=== PATIENT | female | born 1960 | race Caucasian/White ===

== ENCOUNTER 2020-02-28 13:57 | Observation (INO) | payer OTHER, SELFPAY ==
[2020-02-28] VITALS (8 sets, daily range): BP systolic 107–138; BP diastolic 66–87; PULSE 78–98; RESP 18–22; TEMP 36.9; O2SAT 95–98; BMI 40.7
--- NOTE | 2020-02-28 14:43 | US_ITS ---
WS: [id number] RIGHT UPPER QUADRANT ULTRASOUND HISTORY: RUQ abd pain COMPARISON: None available. Liver: 15.7 cm in length. Liver is normal size. There is severe attenuation and coarsened echotexture . Poor penetration of the liver due to fibrosis and fatty change. No bile duct dilatation or mass. Gallbladder: Gallbladder is very difficult to identify as a normal structure. In the expected locatio n of the gallbladder is a complex area with a large amount shadowing. There is no bile. There is a so ft tissue mass with increased vascularity in the region of the gallbladder fossa. There is a large am ount shadowing from the posterior fossa. CBD: 0.4 cm Pancreas: Not well visualized. Right kidney: 10.3 cm in length. Normal size and echogenicity. No hydronephrosis or mass. Aorta and IVC: Unremarkable abdominal aorta and IVC. No ascites. US/US gall bladder [id number] IMPRESSION: 1. Markedly abnormal RIGHT upper quadrant/gallbladder fossa. There is an abnor mal appearance to the gallbladder. There may be a soft tissue mass within the g allbladder versus emphysematous cholecystitis. There is a large amount shadowin g from the fossa. Recommend follow-up CT abdomen and pelvis with IV contrast. 2. Marked hepatic steatosis. 3. No ascites. Notified Ankit Figueroa DO at 02/28/2020 4:04 PM.
--- NOTE | 2020-02-28 14:45 | ED_ITS ---
HPI - Abdominal Pain General: Chief Complaint: ER Hold Stated Complaint: fever, abdomen pain Time Seen by Provider: 02/28/20 14:43 History of Present Illness: HPI narrative: 59-year-old female complaining of epigastric pain radiating to the right upper quadrant its been going on for the last 3 days she has nausea and vomiting and some diarrhea. She is not had a fever at all she denies any chest pain she has discomfort with taking a deep breath because of the pain in her abdomen she not been coughing anything up she denies any medic easy melena hematemesis coffee-ground emesis no hematuria no dysuria urgency or frequency MD elicited complaint: abdominal pain Onset (ago): day(s) (3) Pain Consistency: constant Location: Epigastric and RUQ Severity: severe Quality: cramping and stabbing Radiation: back Migration to: RUQ Exacerbating factors: eating Relieving factors: rest Associated Symptoms: Reports anorexia, bloating, change in bowel habits, GI cramping, diarrhea, dyspepsia, fever(s), nausea and poor appetite; Denies belching, change in stool character, chills, coffee ground emesis, consti pation, dysuria, excessive flatus, heartburn, hematochezia, hematuria, hematemesis, fecal incontinence, loose stools, melena, syncope and vomiting Review of Systems Const: Reports: fever(s); Denies: chills ENMT: Denies: throat pain, ear or mastoid pain, nasal discharge or nasal congestion Card: Denies: syncope Resp: Denies: dyspnea, productive cough or non-productive cough GI: Reports: nausea, diarrhea, bloating, GI cramping and change in bowel habits; Denies: vomiting, hematemesis, coffee ground emesis, heartburn, constipation, belching, excessive flatus, fecal incontinence, change in stool character, hematochezia or melena : Denies: dysuria or hematuria Skin/Breast: Denies: rash or pruritus PFSH ED PFSH: Medical History (Updated 03/01/20 @ 06:34 by Ankit Figueroa DO) Hypertension Surgical History (Updated 02/29/20 @ 07:45 by Chester Sanford MD) History of tubal ligation Physical Exam Const: COMMON NORMALS: no acute distress GENERAL APPEARANCE: cooperative and comfortable ORIENTATION/CONSCIOUSNESS: Yes awake, Yes oriented to person, Yes oriented to place and Yes oriented to time HENMT: COMMON NORMALS: normocephalic, atraumatic, hearing grossly normal bilaterally, external ears normal, EAC's normal, TM's normal bilaterally, Normal nasal mucous membranes and turbinates present, moist oral mucous membranes and oropharynx normal HEAD & SCALP: normocephalic and atraumatic NOSE: Normal nasal mucous membranes and turbinates present EXTERNAL EAR: Yes external ears normal EXTERNAL AUDITORY CANAL: EAC's normal TYMPANIC MEMBRANE: TM's normal bilaterally Eye: COMMON NORMALS: Equal, round and reactive pupils present, EOMs intact b ilaterally, conjunctivae normal and no scleral icterus CONJUNCTIVA: Yes conjunctivae normal PUPIL: Yes Equal, round and reactive pupils present Neck/C-Spine: COMMON NORMALS: full ROM, no lymphadenopathy, supple and no JVD Lymph: LYMPHATIC: no lymphadenopathy noted and no lymphedema noted Resp: COMMON NORMALS: normal respiratory effort, No retractions, No use of accessory muscles and clear to auscultation bilaterally AUSCULTATION: clear to auscultation bilaterally Cardio: COMMON NORMALS: no JVD, regular rate, regular rhythm and No murmurs present (Cardio) RATE: regular rate RHYTHM: regular rhythm GI: COMMON NORMALS: No hepatosplenomegaly present AUSCULTATION: Yes normoactive bowel sounds PALPATION: Yes Tenderness to palpation present (GI) (Epigastric right upper quadrant tenderness), No Guarding due to palpation present (GI) and Yes No hepatosplenomegaly present Extremity: COMMON NORMALS: normal to inspection, capillary refill normal, no clubbing, cyanosis or edema, no calf tenderness and no pedal edema Neuro: SENSORIUM/ORIENTATION: Yes oriented to person, Yes oriented to place and Yes oriented to time Skin: COMMON NORMALS: no rashes or lesions noted GENERAL SKIN EXAM: no rashes or lesions noted Course Vital Signs: Vital signs: Vital Signs Temperature 97.7 F 03/01/20 04:52 Pulse Rate 93 03/01/20 04:52 Respiratory Rate 18 03/01/20 04:52 Blood Pressure 120/74 03/01/20 04:52 Pulse Oximetry 97 03/01/20 04:52 MDM - Abdominal Pain MDM Narrative: Medical decision making narrative: Patient has biliary colic and signs of acute cholecystitis. Discussed with Dr. Sanford. Patient to be admitted and admitted orders written started on Zosyn. Dr. Sanford plans to take her to surgery in the morning for cholecystectomy Lab Data: Labs: Lab Results 02/28/20 02/28/20 02/28/20 Range/Units 15:15 15:15 16:24 WBC 12.9 H (4.0-10.0) 10^3/ uL RBC 5.43 H (4.1-5.3) 10^6/u L Hgb 16.8 H (11.5-15.3) g/dL Hct 50.8 H (37.0-47.0) % MCV 93.6 (81-99) fL MCH 30.9 (28.0-34.0) pg MCHC 33.1 (30.0-36.0) g/dL RDW 12.8 (12.1-15.1) % Plt Count 249 (130-400) 10^3/c mm MPV 9.0 (7.4-10.4) fL Neut % (Auto) 77.0 % Lymph % (Auto) 7.7 % [place] % (Auto) 8.2 % Eos % (Auto) 6.4 % Baso % (Auto) 0.2 % Neut # (Auto) 9.93 H (1.8-7.7) 10^3/u L Lymph # (Auto) 1.0 (0.8-4.8) 10^3/u L [place] # (Auto) 1.1 H (0.2-0.9) 10^3/u L Eos # (Auto) 0.8 (0.0-0.8) 10^3/u L Baso # (Auto) 0.0 (0.0-0.1) 10^3/u L Nucleated RBC % (a uto) 0 % Nucleated RBCs # 0.0 /100WBC Sodium 132 L (136-145) mmol/L Potassium 3.5 (3.5-5.1) mmol/L Chloride 93 L (98-107) mmol/L Carbon Dioxide 27 (22-29) mmol/L Anion Gap 15.5 (5-19) BUN 9 (8-23) mg/dL Creatinine 1.6 H (0.5-0.9) mg/dL GFR Calculation 32.8 L (90-130) mL/min Glucose 146 H (65-115) mg/dL Calculated Osmolal ity 275 L (285-295) mOsm/k g Calcium 9.4 (8.5-10.5) mg/dL Total Bilirubin 1.1 (0.15-1.2) mg/dL AST 21 (0-32) U/L ALT 29 (0-33) U/L Alkaline Phosphata se 101 (35-105) IU/L Total Protein 7.7 (6.6-8.7) g/dL Albumin 3.9 (3.5-5.2) g/dL Globulin 3.8 (1.3-4.6) g/dL Lipase 22 (13-60) U/L Urine Color Gi (Yellow) Urine Appearance Sl hazy (CLEAR) Urine pH 5.0 (5-7) Ur Specific [place]it y 1.015 (1.005-1.030) Urine Protein 2+ H (Negative) Urine Glucose (UA) Trace H (Normal) Urine Ketones 1+ H (Negative) Urine Blood Neg (Negative) Urine Nitrate Negative (Negative) Urine Bilirubin 1+ H (Negative) Urine Urobilinogen 4 H (Negative) mg/dL Ur Leukocyte Cady ase 2+ H (Negative) Urine RBC None (0-2) /hpf Urine WBC 15-25 H (0-5) /hpf Ur Squamous Epith Cells 40-55 H (0-5) /hpf Amorphous Sediment Not Reportable Urine Bacteria 2+ H (NONE) /hpf Discharge Plan Discharge Patient Disposition: Admitted As Inpatient Admit Provider: Chester Sanford Clinical Impression: Acute cholecystitis due to biliary calculus Condition: Stable Coding Level of Care Code ED Clinical Trials Systems Administrator for Chg Fwd Exam Comprehensive
[2020-02-28 15:26] LABS: Basophils % 0.2 %; Hematocrit 50.8 % (37.0-47.0); Hemoglobin 16.8 g/dL (11.5-15.3); Lymphocytes % 7.7 %; Mean Corpuscular HGB Conc 33.1 g/dL (30.0-36.0); Mean Corpuscular Hemoglobin 30.9 pg (28.0-34.0); Mean Corpuscular Volume 93.6 fL (81-99); Monocytes # 1.1 10^3/uL (0.2-0.9); Monocytes % 8.2 %; Nucleated Red Blood Cells % 0 %; Platelet Count 249 10^3/cmm (130-400); Red Blood Count 5.43 10^6/uL (4.1-5.3); Red Cell Distribution Width 12.8 % (12.1-15.1); White Blood Count 12.9 10^3/uL (4.0-10.0)
[2020-02-28 15:55] LABS: Alanine Aminotransferase 29 U/L (0-33); Albumin Level 3.9 g/dL (3.5-5.2); Alkaline Phosphatase 101 IU/L (35-105); Anion Gap 15.5 (5-19); Aspartate Amino Transferase 21 U/L (0-32); Blood Urea Nitrogen 9 mg/dL (8-23); Calcium 9.4 mg/dL (8.5-10.5); Carbon Dioxide 27 mmol/L (22-29); Chloride 93 mmol/L (98-107); Globulin 3.8 g/dL (1.3-4.6); Glomerular Filtration Rate 32.8 mL/min (90-130); Glucose 146 mg/dL (65-115); Lipase 22 U/L (13-60); Osmolality Calculated 275 mOsm/kg (285-295); Potassium 3.5 mmol/L (3.5-5.1); Sodium 132 mmol/L (136-145); Total Bilirubin 1.1 mg/dL (0.15-1.2); Total Protein 7.7 g/dL (6.6-8.7)
--- NOTE | 2020-02-28 16:04 | CTR_ITS ---
PROCEDURE INFORMATION: Exam: CT Abdomen And Pelvis With Contrast Exam date and time: 02/28/2020 4:50 PM Age: 59 years old Clinical indication: Abdominal pain; Localized; Upper; Prior surgery; Surgery type: Tubal; Additional info: Abd pain TECHNIQUE: Imaging protocol: Computed tomography of the abdomen and pelvis with intravenous contrast. Radiation optimization: All CT scans at this facility use at least one of these dose optimization techniques: automated exposure control; mA and/or kV adjustment per patient size (includes targeted exams where dose is matched to clinical indication); or iterative reconstruction. Contrast material: VISI 320; Contrast volume: 95 ml; Contrast route: INTRAVENOUS (IV); COMPARISON: US gall bladder [id number] 02/28/2020 3:28 PM RADIATION DOSE METRICS: Total DLP (mGy-cm): 1316.23 FINDINGS: Liver: There is a diffuse decrease in hepatic parenchymal density, consistent with moderate fatty infiltration. There is no focal abnormality within the liver. Gallbladder and bile ducts: Multiple calcified gallstones are present. There is moderate distention of the gallbladder which measures approximately 4.6 cm in greatest diameter and 9 cm in length. There is mild gallbladder wall thickening and there is some pericholecystic fluid. There is also inflammation in the fat of the right upper quadrant in the subhepatic space and extending along Gerota's fascia. These findings are worrisome for acute cholecystitis. Pancreas: The pancreas is normal. Spleen: The spleen is normal. Adrenal glands: The adrenal glands are normal. Kidneys and ureters: The kidneys are normal. There is no evidence of hydronephrosis. There is no evidence of renal or ureteral calcifications. Stomach and bowel: Moderate diverticulosis is present in the distal colon. There is no evidence of colitis/diverticulitis. Appendix: A normal appendix is identified. Intraperitoneal space: There is a small amount of ascites in the pelvis. Vasculature: Unremarkable. No abdominal aortic aneurysm. Lymph nodes: There is no evidence of lymphadenopathy. Urinary bladder: Urinary bladder is completely collapsed but otherwise unremarkable. Reproductive: Unremarkable as visualized. Bones/joints: The lumbar spine demonstrates mild degenerative changes at multiple levels. Soft tissues: Unremarkable. CT/CT abdomen pelvis w con* [id number] IMPRESSION: 1. Cholelithiasis and acute cholecystitis. 2. Fatty liver Radiation Dose CTDIVOL = (mGy): DLP = 1316.23 (mGy-cm)
[2020-02-28 16:38] LABS: Eosinophils % 6.4 %; Slide Review Slide Review Perform
[2020-02-28 16:39] LABS: Eosinophils # 0.8 10^3/uL (0.0-0.8); Neutrophils # 9.93 10^3/uL (1.8-7.7)
[2020-02-28 16:56] LABS: Urine Appearance SL Hazy (CLEAR); Urine Color Amber (Yellow)
[2020-02-28 16:57] LABS: Add Urine Microscopic? YES; Bilirubin Urine 1+ (Negative); Blood Urine Neg (Negative); Glucose Urine UA Trace (Normal); Ketones Urine 1+ (Negative); Leukocyte Esterase Urine 2+ (Negative); Nitrate Urine Negative (Negative); Protein Urine 2+ (Negative); Specific Gravity, Urine 1.015 (1.005-1.030); Urobilinogen Urine 4 mg/dL (Negative)
[2020-02-28] MEDS: iodixanol 320 mg/mL 100mL Btl IV (17:05)
[2020-02-28 17:11] LABS: Add Urine Culture? No; Bacteria Urine 2+ /hpf; Squamous Epithelial Cell Urine 40-55 /hpf (0-5); WBC Urine 15-25 /hpf (0-5)
[2020-02-28] MEDS: cefTRIAXone 1,000 MG in sodium chloride 0.9% (plus) 50 ML 100 MG IV (17:53)
[2020-02-28] MEDS: piperacillin-tazobactam 3.375 GM in sodium chloride 0.9% (plus) 50 ML IV (18:35)
[2020-02-29] VITALS (14 sets, daily range): BP systolic 95–131; BP diastolic 57–91; PULSE 81–101; RESP 16–20; TEMP 36.1–37; O2SAT 91–99
[2020-02-29] MEDS: D5-NS 0.45% + KCL 20 mEq 20 MEQ/1,000 ML BAG 150 MEQ IV (03:45)
[2020-02-29 06:03] LABS: Basophils % 0.1 %; Lymphocytes # 1.2 10^3/uL (0.8-4.8); Mean Corpuscular HGB Conc 33.3 g/dL (30.0-36.0); Mean Corpuscular Hemoglobin 31.1 pg (28.0-34.0); Mean Corpuscular Volume 93.2 fL (81-99); Mean Platelet Volume 9.8 fL (7.4-10.4); Monocytes # 0.8 10^3/uL (0.2-0.9); Monocytes % 7.8 %; Neutrophils # 8.45 10^3/uL (1.8-7.7); Neutrophils % 80.6 %; Nucleated Red Blood Cells % 0 %; Platelet Count 208 10^3/cmm (130-400); Red Blood Count 4.83 10^6/uL (4.1-5.3); Red Cell Distribution Width 12.9 % (12.1-15.1); White Blood Count 10.5 10^3/uL (4.0-10.0)
[2020-02-29 06:35] LABS: HCG, Serum Qual Negative (Negative)
[2020-02-29] MEDS: sodium chloride 0.9% 1,000 ML 30 ML IV (07:18)
[2020-02-29 07:24] LABS: Alanine Aminotransferase 20 U/L (0-33); Albumin Level 3.3 g/dL (3.5-5.2); Alkaline Phosphatase 87 IU/L (35-105); Anion Gap 16.3 (5-19); Aspartate Amino Transferase 15 U/L (0-32); Blood Urea Nitrogen 12 mg/dL (8-23); Calcium 8.9 mg/dL (8.5-10.5); Carbon Dioxide 24 mmol/L (22-29); Chloride 99 mmol/L (98-107); Globulin 3.3 g/dL (1.3-4.6); Glomerular Filtration Rate 35.3 mL/min (90-130); Glucose 123 mg/dL (65-115); Osmolality Calculated 283 mOsm/kg (285-295); Potassium 3.3 mmol/L (3.5-5.1); Sodium 136 mmol/L (136-145); Total Bilirubin 0.8 mg/dL (0.15-1.2); Total Protein 6.6 g/dL (6.6-8.7)
--- NOTE | 2020-02-29 07:44 | P.ANESASSM_ITS ---
Pre-Anesthetic Assessment Pre-Anesthetic Assessment: Height/Weight: Height 1.6 m Weight 104.326 kg Temp Pulse Resp BP Pulse Ox 97.7 F 97 18 95/57 95 02/29/20 07:16 02/29/20 07:16 02/29/20 07:16 02/29/20 07:16 02/29/20 07:16 Preop Diagnosis: acute cholecystitis Proposed Procedure: Operation Date: 02/29/20 09:10 Proposed Procedures p Laparoscopic Cholecystectomy(Not Applicable) - Chester Sanford MD Familial anesthetic complications: None Was Beta Jovanni taken within 24 hours: Yes Last intake: Intake Last Liquid Date 02/28/20 Last Liquid Time 10:00 Last Solid Date 02/25/20 Last Solid Time 15:00 Social: Social History: No alcohol and No tobacco Exam: Pre-Anes Outpt Exam: alert, oriented x 3, clear to auscultation bilaterally and regular rate & rhythm Airway: Cervical ROM: WNL MP: 2 Dentition: Full CV/HEM: CV/HEM: HTN Anesthetic Plan: ASA status: 2E Anesthesia: General Risk of > 500 ml blood loss (7ml/kg in children): No Meds/Allergies 2 Current Medications: Current Medications Generic Name Dose Route Start Last Admin Trade Name Freq PRN Reason Stop Dose Admin Potassium Chloride /Dextrose/Sod Cl 20 meq in 1,000 m ls @ 150 mls/hr 02/28/20 22:59 02/29/20 03:45 D5-Ns 0.45% + Edis l 20 Meq IV 150 mls/hr .Q6H40M AFSHIN Administration Sodium Chloride 1,000 mls @ 30 ml s/hr 02/29/20 07:00 02/29/20 07:18 Sodium Chloride 0.9% IV 03/01/20 06:59 30 mls/hr .Q24H AFSHIN Administration PFSH Anesthesia PFSH: Medical History (Updated 02/29/20 @ 07:45 by Chester Sanford MD) Hypertension Surgical History (Updated 02/29/20 @ 07:45 by Chester Sanford MD) History of tubal ligation Data Anesthesia CBC & Chem 7: 02/29/20 04:44 02/29/20 04:44 Other Labs: Laboratory Results - last 48 hr 02/28/20 02/28/20 02/28/20 15:15 15:15 16:24 WBC 12.9 H RBC 5.43 H Hgb 16.8 H Hct 50.8 H MCV 93.6 MCH 30.9 MCHC 33.1 RDW 12.8 Plt Count 249 MPV 9.0 Neut % (Auto) 77.0 Lymph % (Auto) 7.7 [place] % (Auto) 8.2 Eos % (Auto) 6.4 Baso % (Auto) 0.2 Neut # (Auto) 9.93 H Lymph # (Auto) 1.0 [place] # (Auto) 1.1 H Eos # (Auto) 0.8 Baso # (Auto) 0.0 Nucleated RBC % (auto) 0 Nucleated RBCs # 0.0 Sodium 132 L Potassium 3.5 Chloride 93 L Carbon Dioxide 27 Anion Gap 15.5 BUN 9 Creatinine 1.6 H GFR Calculation 32.8 L Glucose 146 H Calculated Osmolality 275 L Calcium 9.4 Total Bilirubin 1.1 AST 21 ALT 29 Alkaline Phosphatase 101 Total Protein 7.7 Albumin 3.9 Globulin 3.8 Lipase 22 HCG, Qual Urine Color Gi Urine Appearance Sl hazy Urine pH 5.0 Ur Specific [place] 1.015 Urine Protein 2+ H Urine Glucose (UA) Trace H Urine Ketones 1+ H Urine Blood Neg Urine Nitrate Negative Urine Bilirubin 1+ H Urine Urobilinogen 4 H Ur Leukocyte Esterase 2+ H Urine RBC None Urine WBC 15-25 H Ur Squamous Epith Cells 40-55 H Amorphous Sediment Not Reportable Urine Bacteria 2+ H 02/29/20 02/29/20 02/29/20 04:44 04:44 04:44 WBC 10.5 H RBC 4.83 Hgb 15.0 Hct 45.0 MCV 93.2 MCH 31.1 MCHC 33.3 RDW 12.9 Plt Count 208 MPV 9.8 Neut % (Auto) 80.6 Lymph % (Auto) 11.0 [place] % (Auto) 7.8 Eos % (Auto) 0.0 Baso % (Auto) 0.1 Neut # (Auto) 8.45 H Lymph # (Auto) 1.2 [place] # (Auto) 0.8 Eos # (Auto) 0.0 Baso # (Auto) 0.0 Nucleated RBC % (auto) 0 Nucleated RBCs # 0.0 Sodium 136 Potassium 3.3 L Chloride 99 Carbon Dioxide 24 Anion Gap 16.3 BUN 12 Creatinine 1.5 H GFR Calculation 35.3 L Glucose 123 H Calculated Osmolality 283 L Calcium 8.9 Total Bilirubin 0.8 AST 15 ALT 20 Alkaline Phosphatase 87 Total Protein 6.6 Albumin 3.3 L Globulin 3.3 Lipase HCG, Qual Negative Urine Color Urine Appearance Urine pH Ur Specific [place] Urine Protein Urine Glucose (UA) Urine Ketones Urine Blood Urine Nitrate Urine Bilirubin Urine Urobilinogen Ur Leukocyte Esterase Urine RBC Urine WBC Ur Squamous Epith Cells Amorphous Sediment Urine Bacteria Micro: Microbiology 02/28/20 17:50 Blood Culture - Preliminary Blood SPECIMEN COLLECTED 02/28/20 17:40 Blood Culture - Preliminary Blood SPECIMEN COLLECTED Cardiac Studies: No Data to Display
--- NOTE | 2020-02-29 07:44 | PM.HP ---
Providers/Chief Complaint Admitting Physician: Chester Sanford MD Chief Complaint: fever, abdomen pain History of Present Illness Kim Mejia is a 59 year old female who presented to the ER with 3-day history of abdominal pain mainly localized to the right upper quadrant pain associated with nausea but denies any vomiting. Patient denies any fevers chills constipation or diarrhea. The pain did not radiate and she states that she developed the pain after she ate couple of bites of tyra. No prior abdominal surgeries. The pain progressively got worse over the 3 days and she finally presented to the ER yesterday. Review of Systems General: Reports: 10 or more systems reviewed and unremarkable except in HPI and below Medications/Allergies Home Medications Medication Instructions Recorded Confirmed Last Taken Type metoprolol tartrate 25 mg PO DAILY@0700 02/28/20 02/28/20 02/28/20 History multivitamin with minerals 1 tab PO DAILY@0700 02/28/20 02/28/20 02/28/20 History [Hair,Skin and Nails] Allergies Allergy/AdvReac Type Severity Reaction Status Date / Time Sulfa (Sulfonamide Allergy ALGY-Anaphy Verified 02/28/20 14:08 Antibiotics) laxis PFSH Acute PFSH: Medical History (Updated 02/29/20 @ 07:45 by Chester Sanford MD) Hypertension Surgical History (Updated 02/29/20 @ 07:45 by Chester Sanford MD) History of tubal ligation Vitals/I&O/Wt Last Vital Signs Temp 97.7 F 02/29/20 07:16 Pulse 97 02/29/20 07:16 Resp 18 02/29/20 07:16 BP 95/57 02/29/20 07:16 Pulse Ox 95 02/29/20 07:16 02/28/20 02/29/20 02/29/20 22:59 06:59 14:59 Intake Total 50 / 50 Balance 50 / 50 Weight last 48 hrs Weight 230 lb Physical Exam Narrative: EXAM NARRATIVE: HEENT: Normocephalic Eye: Sclera /conjunctiva normal Respiratory and chest: Bilateral clear breath sounds on auscultation Cardiovascular: Normal S1 and S2 heart sounds Abdomen: Soft to palpation tender right upper quadrant, Cortez sign positive Neurological: Oriented to place person and time Skin: Intact, no lesions appreciated on gross exam Data : 02/29/20 04:44 02/29/20 04:44 Micro: Microbiology 02/28/20 17:50 Blood Culture - Preliminary Blood SPECIMEN COLLECTED 02/28/20 17:40 Blood Culture - Preliminary Blood SPECIMEN COLLECTED A&P Assessment and plan (1) Acute cholecystitis due to biliary calculus: 59-year-old female with right upper quadrant pain, nausea, leukocytosis with ultrasound and CT scan showing findings consistent with acute calculus cholecystitis. Plan for laparoscopic possible open cholecystectomy Procedure, risks, benefits and alternatives have been discussed with the patient who wishes to proceed with surgery. Status: Acute Attestations Medical Necessity Statement*: Acute cholecystitis Coding Level of Care Code Acute Supervisor [place] for [facility] Diagnoses Acute cholecystitis due to biliary calculus K80.00
--- NOTE | 2020-02-29 07:49 | PC.NURSE ---
Pt taken to pre-op by TOSHIA Nicole.
--- NOTE | 2020-02-29 11:11 | PM.OP ---
Operative Report Date of procedure: February 29, 2020 Pre-op Diagnosis: Acute calculus cholecystitis Post-op Diagnosis: Acute calculus cholecystitis with patchy areas of necrosis Procedure Done: Laparoscopic cholecystectomy Specimens removed/disposition: Gallbladder Surgeon: Chester Sanford Anesthesia: General Estimated blood loss (mL): 25 Condition: stable Disposition: PACU Procedure: The patient was taken to the operating room and was intubated under general anesthesia. After the antibiotic had been administered, the abdomen was prepped and draped in a sterile manner. Using a #15 blade, a 1 centimeter infraumbilical curvilinear incision was made and using an open Ismael technique the peritoneal cavity was entered. A 10 millimeter port was placed and 15 millimeters of pneumoperitoneum was created. A 10 millimeter, 30 degrees scope was then introduced. Three 5 millimeter ports were placed in the epigastric, midclavicular and the anterior axillary line two fingerbreadths below the costal margin on the right side under the direct visualization. The omentum was adherent to the body of the gallbladder which was peeled away revealing an acutely inflamed gallbladder with patchy areas of necrosis. 50 cc of bile was aspirated using an aspirating needle. Ratcheted forceps were introduced into the lateral most port and was used to retract the fundus of the gallbladder cephalad and using forceps the infundibulum of the gallbladder was retracted laterally. Using L-hook cautery the peritoneum overlying the Calot's triangle was opened medially and laterally until the cystic duct and the cystic artery were skeletonized. Dissection was carried along the body of the gallbladder and after ensuring critical view of safety, 4 clips applied on the cystic duct and 3 clips applied on the cystic artery and cut leaving, 3 clips on the remaining portion of the duct and 2 clips on the remaining portion of the artery. There was a tear in the infundibulum of the gallbladder from retraction with drainage of bile which was irrigated and suctioned out. The rest of the gallbladder was dissected off the liver using L-hook cautery. There was no bleeding or bile leaking noted from the gallbladder fossa and the clips appeared to be in place. An EndoCatch bag was introduced to remove the gallbladder. All the ports were removed under direct visualization and there was no bleeding noted from the port sites. The fascia of the umbilicus was closed using [id number] Vicryl sutures and the subcutaneous tissue was approximated using 3-0 Vicryl sutures. The skin at all four ports were closed using 4-0 Monocryl and surgical glue. A total of 10 millimeters of 0.5% Marcaine was infiltrated around the port sites. The patient was stable throughout the procedure.
[2020-02-29] MEDS: sodium chloride 0.9% 1,000 ML 100 ML IV ×2 (11:34→21:20)
[2020-02-29] MEDS: famotidine 20 mg/2 mL INJ IVP (11:34)
[2020-02-29] MEDS: piperacillin-tazobactam 3.375 GM in sodium chloride 0.9% (plus) 50 ML IV ×2 (11:35→21:21)
[2020-02-29 11:48] LABS: Glucose Point of Care 102 mg/dL (70-110)
--- NOTE | 2020-02-29 16:09 | ANE.PACU2 ---
Inpatient post-anesthesia follow up: Airway intact: Yes Vital signs: Temperature 98.6 F Pulse Rate [Monito r] 90 Pulse Rate 101 Respiratory Rate 17 Blood Pressure [Le ft Arm] 108/74 Blood Pressure 116/69 Pulse Oximetry 91 Oxygen Delivery Me thod Room Air Oxygen Flow Rate 8 Fraction of Inspir ed Oxygen Hydration adequate: Yes Nausea and vomiting: No Pain level: 3 Mental status: Baseline
[2020-02-29] MEDS: ondansetron 2 mg/ML SDV 2 mL 4 MG IVP (21:19)
[2020-02-29] MEDS: HYDROcodone-acetaminophen 5-325 mg Tablet 1 TAB PO (21:20)
[2020-02-29] MEDS: sennosides 8.6 mg Tablet 17.2 MG PO (21:20)
[2020-03-01] VITALS: BP 101/66; PULSE 100; RESP 18; TEMP 37.1; O2SAT 94
[2020-03-01] MEDS: morphine 4 mg/mL SDV 1 mL 3 MG IVP (03:52)
[2020-03-01] MEDS: ondansetron 2 mg/ML SDV 2 mL 4 MG IVP (03:58)
[2020-03-01 04:52] VITALS: BP 120/74; PULSE 93; RESP 18; TEMP 36.5; O2SAT 97
[2020-03-01] MEDS: piperacillin-tazobactam 3.375 GM in sodium chloride 0.9% (plus) 50 ML IV (05:22)
[2020-03-01] MEDS: HYDROcodone-acetaminophen 5-325 mg Tablet 1 TAB PO (05:28)
[2020-03-01] MEDS: metoprolol tartrate 25 mg Tablet PO (05:29)
[2020-03-01] MEDS: sodium chloride 0.9% 1,000 ML 100 ML IV (06:47)
[2020-03-01 08:46] VITALS: BP 115/81; PULSE 86; RESP 18; TEMP 36.3; O2SAT 93
[2020-03-01 09:27] LABS: Anion Gap 9.9 (5-19); Blood Urea Nitrogen 10 mg/dL (8-23); Calcium 8.3 mg/dL (8.5-10.5); Carbon Dioxide 27 mmol/L (22-29); Chloride 105 mmol/L (98-107); Glomerular Filtration Rate 38.1 mL/min (90-130); Glucose 125 mg/dL (65-115); Osmolality Calculated 287 mOsm/kg (285-295); Potassium 3.9 mmol/L (3.5-5.1); Sodium 138 mmol/L (136-145)
--- NOTE | 2020-03-01 10:23 | PM.PN ---
Subjective Subjective: Interval history: Patient denies any abdominal pain, no nausea or vomiting, tolerating regular diet Vitals/I&O/Wt Last Vital Signs Temp 97.4 F L 03/01/20 08:46 Pulse 86 03/01/20 08:46 Resp 18 03/01/20 08:46 BP 115/81 03/01/20 08:46 Pulse Ox 93 03/01/20 08:46 02/29/20 03/01/20 03/01/20 22:59 06:59 14:59 Intake Total 1486.667 / 4631.667 1195 / 4631.667 50 / 50 Output Total 300 / 550 250 / 550 Balance 1186.667 / 4081.667 945 / 4081.667 50 / 50 Weight last 48 hrs Weight 230 lb Physical Exam Narrative: EXAM NARRATIVE: Abdomen: Soft, minimally tender, incision clean dry and intact Data : 02/29/20 04:44 03/01/20 08:38 Micro: Microbiology 02/28/20 17:50 Blood Culture - Preliminary Blood NEGATIVE TO DATE 02/28/20 17:40 Blood Culture - Preliminary Blood NEGATIVE TO DATE A&P Assessment and plan (1) Status post laparoscopic cholecystectomy: Doing well DC home today Status: Acute Attestations Medical Necessity Statement*: DC home today status post lap elder Coding Level of Care Code Acute Home Office Claims Examiner for Chg Fwd Diagnoses Status post laparoscopic cholecystectomy Z90.49
--- NOTE | 2020-03-01 10:24 | P.DS_ITS ---
Discharge Providers Date of Admission: 02/28/20 18:05 Date of Discharge: March 01, 2020 Attending Provider at Admission: Chester Sanford MD Attending Provider at Discharge: Chester Sanford MD Diagnoses at Discharge Discharge Diagnosis (1) Status post laparoscopic cholecystectomy: Status: Acute Reason for Visit Reason for Visit: fever, abdomen pain Hospital Course Hospital Course This is a 60-year-old female who presented to the ER with right upper quadrant pain and was noted to have acute calculus cholecystitis. Patient is admitted for IV antibiotics, underwent laparoscopic cholecystectomy. By following day patient was tolerating regular diet ambulating and vital signs are stable. Her pain is controlled with oral pain medications. Discharge Data Data Completed and Pending: Completed Studies During Hospitalization Category Date Time Status CT abdomen pelvis w con* [id number] Stat Cat Scan 02/28/20 16:04 Completed US gall bladder 7 [id number] Stat Ultrasound 02/28/20 14:43 Completed Pending at discharge Category Date Time Status ES surgery / GI i mages Routine Exams 02/29/20 08:06 Taken Blood Culture Sta t Lab 02/28/20 17:50 Results Pathology: Surgic al [PTH] Routine Pth 02/29/20 10:12 Received Labs from last 24 hours 03/01/20 02/29/20 08:38 11:06 Sodium 138 Potassium 3.9 Chloride 105 Carbon Dioxide 27 Anion Gap 9.9 BUN 10 Creatinine 1.4 H GFR Calculation 38.1 L Glucose 125 H POC Glucose 102 Calculated Osmolal ity 287 Calcium 8.3 L Vitals: Last Vital Signs Temp 97.4 F L 03/01/20 08:46 Pulse 86 03/01/20 08:46 Resp 18 03/01/20 08:46 BP 115/81 03/01/20 08:46 Pulse Ox 93 03/01/20 08:46 Discharge Plan Discharge Patient Disposition: Home Condition: Stable Prescriptions: [place] 5-325 mg tablet 1 tab PO Q6H 7 Days Qty: 20 RF: 0 docusate sodium [Colace] 100 mg capsule 100 mg PO BID Qty: 30 RF: 0 levofloxacin 500 mg tablet 500 mg PO DAILY 5 Days RF: 0 ondansetron HCl [Zofran] 4 mg tablet 4 mg PO Q6H PRN (Reason: nausea and vomiting) Qty: 20 RF: 0 Continued Hair,Skin and Nails Tablet 1 tab PO DAILY@0700 RF: 0 metoprolol tartrate 25 mg tablet 25 mg PO DAILY@0700 RF: 0 Discharge Orders: Discharge Order (Routine); Ordered 03/01/20 Ordered By: Chester Sanford Referrals: Chester Sanford MD [Physician] - 2 weeks Discharge Diet: Regular Discharge Activity: Limit activity as instructed Activity Restrictions/Additional Instructions: 1. Up and walking as tolerated. 2. Ok to shower in 48 hours after surgery. 3. Remove Dermabond dressing in 7-10 days. 4. Do not lift more than 10 pounds. 5. Do not operate heavy machinery or drive while using pain medications. 6. Advised to return to ER or contact my office if there are any signs of infection like, increasing pain, fevers, chills, redness or drainage of pus. Discharge Attestations Time Spent in Discharge Care*: less than 30 min Quality Metrics Clinical Quality Measures During this hospital stay, did patient experience: None Coding Level of Care Code Acute Clinical Operations Consultant for Kristeng Fwd Diagnoses Status post laparoscopic cholecystectomy Z90.49
[2020-03-01 11:40] VITALS: BP 112/71; PULSE 82; RESP 17; TEMP 36.8; O2SAT 91
--- NOTE | 2020-03-01 12:22 | PC.NURSE ---
Pt educated on and given IS.
[2020-03-01 14:09] VITALS: BP 112/71; PULSE 82; RESP 17; TEMP 36.8; O2SAT 91
== END 2020-03-01 12:48 | disposition home or self-care (01) ==
LOC: ER 14:43 → ER IP 02-29 00:30 → MEDSURG 02-29 04:59 → ER IP 02-29 13:19
PROVIDERS: Nurse Practitioner Family; Admitting Provider Surgery; Emergency Provider Family Medicine; Family Provider Family Medicine; Visit Provider Surgery
PROC: 0FT44ZZ Resection of Gallbladder, Percutaneous Endoscopic Approach (ICD-10-PCS; CPT 47562; principal; 2020-02-29 09:10)
DX: K80.13 Calculus of gallbladder with acute and chronic cholecystitis with obstruction (principal); K82.A1 Gangrene of gallbladder in cholecystitis; I10 Essential (primary) hypertension
CPT/HCPCS: 47562; 12345; 36415; 36416; 74177; 76705; 80048; 80053; 81001; 82962; 83690; 84703; 85025; 87040; 88304; 99283; G0378; J0690; J0696; J1100; J2250; J2270; J2370; J2405; J2543; J2704; J2710; J3010; J3490; J7030; Q9967

== ENCOUNTER 2020-10-31 15:21 | Outpatient (CLI) | payer OTHER, SELFPAY ==
--- NOTE | 2020-10-31 15:31 | MM_ITS ---
WS: [id number] BILATERAL DIGITAL SCREENING MAMMOGRAM WITH CAD CLINICAL INFORMATION: SCREENING HISTORY: Screening mammogram. No current complaints. COMPARISON: TECHNIQUE: Bilateral CC and MLO views. FINDINGS: Fatty-replaced breasts bilaterally. No suspicious focal mass, asymmetry, calcifications, or sas architect ural distortion. No evidence of malignancy. Stable benign calcifications. MM/[place] [id number] IMPRESSION: BI-RADS: 2-Benign FOLLOW UP: 1 Year Follow-up Recommend return to annual screening mammography.
== END 2020-10-31 15:22 | disposition home or self-care (01) ==
LOC: RADSHAW 15:29
PROVIDERS: PCP Family Medicine; Visit Provider Family Medicine
DX: Z12.31 Encounter for screening mammogram for malignant neoplasm of breast (principal)
CPT/HCPCS: 77067

== ENCOUNTER 2025-01-26 14:35 | Emergency (ER) | payer SELFPAY ==
[2025-01-26 14:39] VITALS: BP 176/97; PULSE 72; RESP 20; TEMP 36.7; O2SAT 99
--- NOTE | 2025-01-26 14:51 | ECG_ITS ---
[facility] Test Date: 2025-01-26 Pat Name: Kim Dinh Department: Room: Gender: Female [employer] Sewer: : 1960 Requested By: Ankit Spring Order Number: [id number] Eldon MD: Emili Chew M.D. Measurements Intervals [place] Rate: 69 P: 57 NM: 156 QRS: 28 QRSD: 88 T: 29 QT: 407 QTc: 439 Interpretive Statements SINUS RHYTHM No previous ECG available for comparison Electronically Signed On 01-27-2025 18:47:48 GEAR AND SPLINE GRINDER by Emili Chew M.D. [id number]
--- NOTE | 2025-01-26 15:08 | CTR_ITS ---
PROCEDURE INFORMATION: Exam: CT Lumbar Spine Without Contrast Exam date and time: 01/26/2025 3:23 PM Age: 64 years old Clinical indication: Low back pain; Additional info: Low back pain w radiculopathy TECHNIQUE: Imaging protocol: Computed tomography of the lumbar spine without contrast. Radiation optimization: All CT scans at this facility use at least one of these dose optimization techniques: automated exposure control; mA and/or kV adjustment per patient size (includes targeted exams where dose is matched to clinical indication); or iterative reconstruction. COMPARISON: CT abdomen pelvis w con* [id number] 02/28/2020 4:54 PM RADIATION DOSE METRICS: Total DLP (mGy-cm): 840.15 FINDINGS: Bones/joints: The lumbar lordosis is preserved. Posterior elements are aligned. No spondylolisthesis. Vertebral body heights are maintained. No acute fracture. Bulky anterior disc osteophyte complexes. Severe right L5-S1 facet arthrosis results in mild neural foraminal stenosis. Mild additional multilevel degenerative changes without significant spinal canal or foraminal stenosis. Evaluation of spinal canal contents is limited with CT technique. Stomach and bowel: Partially visualized sigmoid colonic diverticulosis. Vasculature: Atherosclerotic changes. Soft tissues: Unremarkable. CT/CT lumbar spine wo con* [id number] IMPRESSION: 1. No acute findings. 2. Degenerative changes as above.
[2025-01-26 15:13] LABS: Hematocrit 42.4 % (36-47); Hemoglobin 14.00 g/dL (11.27-16.99); Mean Corpuscular HGB Conc 33.0 g/dL (30-55); Mean Corpuscular Hemoglobin 31.2 pg (27-33); Mean Corpuscular Volume 94.4 fl (85-98); Nucleated Red Blood Cells % 0 %; Platelet Count 251 10^3/cmm (157-399); Red Blood Count 4.49 10^6/uL (3.85-5.65); White Blood Count 6.18 10^3/uL (3.29-11.43)
--- NOTE | 2025-01-26 15:22 | PC.NURSE ---
Pt. to CT.
[2025-01-26 15:31] LABS: Alanine Aminotransferase 26 U/L (0-33); Albumin Level 4.3 g/dL (3.5-5.2); Alkaline Phosphatase 82 U/L (35-105); Anion Gap 16.8 (5-19); Aspartate Amino Transferase 24 U/L (0-32); Blood Urea Nitrogen 14 mg/dL (8-23); Calcium 9.4 mg/dL (8.5-10.5); Carbon Dioxide 26 mmol/L (22-29); Chloride 101 mmol/L (98-107); Globulin 2.6 g/dL (1.3-4.6); Glucose 103 mg/dL (65-115); Osmolality Calculated 291 mOsm/kg (285-295); Potassium 3.8 mmol/L (3.5-5.1); Sodium 140 mmol/L (136-145); Total Protein 6.9 g/dL (6.6-8.7)
[2025-01-26 15:32] LABS: Glucose Urine UA Negative (Normal); Nitrate Urine Negative (Negative); Specific Gravity, Urine 1.025 (1.005-1.030)
[2025-01-26 15:32] LABS: Troponin(5th) Baseline 7 ng/L (0-10)
[2025-01-26 15:38] LABS: Add Urine Microscopic? YES; Universal Test for UA Present (0)
[2025-01-26] MEDS: orphenadrine 30 mg/mL Inj 2 mL 60 MG IVP (15:45)
[2025-01-26 15:51] LABS: UA Slide Review UA Slide Review Perf
[2025-01-26 16:19] VITALS: BP 159/88; PULSE 63; O2SAT 96
--- NOTE | 2025-01-26 16:51 | ECG_ITS ---
[facility] Test Date: 2025-01-26 Pat Name: Kim Dinh Department: Room: Gender: Female Shoe Worker: : 1960 Requested By: Ankit Spring Order Number: [id number] Eldon MD: Emili Chew M.D. Measurements Intervals [place] Rate: 57 P: 27 AR: 159 QRS: 16 QRSD: 87 T: 16 QT: 422 QTc: 413 Interpretive Statements SINUS BRADYCARDIA Compared to ECG 01/26/2025 14:47:38 Sinus rhythm no longer present Electronically Signed On 01-27-2025 18:51:25 WASHER ASSEMBLER by Emili Chew M.D. [email or web address]
[2025-01-26 16:58] VITALS: BP 163/81; PULSE 63; O2SAT 97
--- NOTE | 2025-01-26 17:13 | ED_ITS ---
HPI - Back Pain/Injury 2 General: Chief Complaint: Back Pain/Injury Stated Complaint: back pain, dizziness, high BP Time Seen by Provider: 01/26/25 14:44 History of Present Illness: 64-year-old female who presents to the e mergency room after a near syncopal episode. She was at her chiropractor for back pain has severe back pain and spasm and nearly passed out her legs became weak she fell she is ambulatory now with a walker. She does not usually use a walker but has been because of her severe back pain. No fecal incontinence no urinary retention no saddle paresthesias. She does get pain radiating down the anterior thighs bilaterally Associated symptoms: Deny abdominal pain, chills, dysuria, fever(s) or urinary urgency Related Data Home Medications ?Medication ?Instructions ?Recorded ?Confirmed multivitamin with minerals 1 tab PO DAILY@0700 1 01/26/25 (Hair,Skin and Nails tablet) metoprolol tartrate 50 mg tablet 50 mg PO BID 01/26/25 01/26/25 Previous Rx's ?Medication ?Instructions ?Recorded methylprednisolone 4 mg tablets in See Rx Instructions PO .COMPLEX 01/26/25 a dose pack (Medrol (Tab)) #21 ea tizanidine 4 mg tablet 4 mg PO Q6H PRN muscle spast icity 01/26/25 #20 tabs Allergies Allergy/AdvReac Type Severity Reaction Status Date / Time Sulfa (Sulfonamide Allergy ALGY-Anaphy Verified 02/28/20 14:08 Antibiotics) laxis Review of Systems 2 Const: Denies: fever(s) or chills Card: Denies: chest pain Resp: Denies: dyspnea GI: Denies: abdominal pain : Denies: dysuria, urinary frequency or urinary urgency Musc: Reports: back pain; Denies: neck pain Skin/Breast: Denies: rash PFSH ED 2 PFSH: Medical History Hypertension Surgical History Status post laparoscopic cholecystectomy (02/29/20) History of tubal ligation Physical Exam 2 Const: COMMON NORMALS: no acute distress GENERAL APPEARANCE: cooperative and comfortable ORIENTATION/CONSCIOUSNESS: Yes awake, Yes oriented to person, Yes oriented to place and Yes oriented to time HENMT: COMMON NORMALS: normocephalic, atraumatic and hearing grossly normal bilaterally HEAD & SCALP: normocephalic and atraumatic Resp: COMMON NORMALS: normal respiratory effort, No retractions, No use of accessory muscles and clear to auscultation bilaterally AUSCULTATION: clear to auscultation bilaterally Cardio: COMMON NORMALS: regular rate, regular rhythm and No murmurs present (Cardio) RATE: regular rate RHYTHM: regular rhythm GI: COMMON NORMALS: Soft to palpation and No hepatosplenomegaly present A USCULTATION: Yes normoactive bowel sounds PALPATION: Yes Soft to palpation, No Tenderness to palpation present (GI), No Guarding due to palpation present (GI) and Yes No hepatosplenomegaly present Extremity: COMMON NORMALS: normal to inspection, capillary refill normal, no clubbing, cyanosis or edema, no calf tenderness and no pedal edema OTHER: Dorsal plantarflexion strength 5 of 5. Straight leg raising equivocal. No saddle paresthesias. Remedies have palpable dorsalis pedis pulse bilaterally no signs of ischemia. Sensation lower extremities normal Neuro: SENSORIUM/ORIENTATION: Yes oriented to person, Yes oriented to place and Yes oriented to time Skin: COMMON NORMALS: no rashes or lesions noted GENERAL SKIN EXAM: no rashes or lesions noted Course 2 Vital Signs: Vital signs: Vital Signs Temperature 98.0 F 01/26/25 14:39 Pulse Rate 70 01/26/25 18:19 Respiratory Rate 20 H 01/26/25 14:39 Blood Pressure 179/94 01/26/25 18:19 Pulse Oximetry 92 01/26/25 18:19 Oxygen Delivery Me thod Room Air 01/26/25 16:58 MDM - Back Pain/Injury Medical Decision Making Medical decision making Social determinants: None I reviewed the patient's medical record. I reviewed the patient's current home meds. Alternate historians: None Differential diagnosis: Lumbar muscle back spasm, lumbar compression fracture, spinal stenosis, lumbar radiculopathy Lab Review: Labs reviewed as found in the chartCBC unremarkable creatinine slightly elevated at 1.4 however compared to previous levels this appears to be her baseline. Urine negative for signs of infection patient had 6-10 white blood cells but 11-20 squamous cells negative leukocyte esterase and nitrates. Imaging: Significant degenerative changes no significant spinal stenosis. Assessment of risk Level of risk: Moderate Hospitalization considerations: No consideration for hospitalization on initial exam there is an history there is no sign of cauda equina syndrome Reexamination: Improved after medications given Assessment and plan: Patient improved with medications given will discharge patient home encouraged use of ambulation aids such as a walker or cane. Recommend against manipulation of the back at this time. Will discharge home with steroid taper as well as tizanidine can use [id number] Tylenol and ibuprofen refer for follow-up to primary care. Labs 01/26/25 14:58 01/26/25 14:58 Radiology Impressions Lumbar Spine CT 01/26/25 15:08 IMPRESSION: 1. No acute findings. 2. Degenerative changes as above. Laboratory Results WBC 6.18 10^3/uL (3.29-11.43) 01/26/25 14:58 RBC 4.49 10^6/uL (3.85-5.65) 01/26/25 14:58 Hgb 14.00 g/dL (11.27-16.99) 01/26/25 14:58 Hct 42.4 % (36-47) 01/26/25 14:58 MCV 94.4 fl (85-98) 01/26/25 14:58 MCH 31.2 pg (27-33) 01/26/25 14:58 MCHC 33.0 g/dL (30-55) 01/26/25 14:58 RDW 13.7 % (12.1-15.1) 01/26/25 14:58 Plt Count 251 10^3/cmm (157-399) 01/26/25 14:58 MPV 9.0 fL (7.4-10.4) 01/26/25 14:58 Neut % (Auto) 64.0 % 01/26/25 14:58 Lymph % (Auto) 24.8 % 01/26/25 14:58 [place] % (Auto) 8.1 % 01/26/25 14:58 Eos % (Auto) 2.3 % 01/26/25 14:58 Baso % (Auto) 0.5 % 01/26/25 14:58 Neut # (Auto) 3.96 10^3/uL (1.8-7.7) 01/26/25 14:58 Lymph # (Auto) 1.5 10^3/uL (0.8-4.8) 01/26/25 14:58 [place] # (Auto) 0.5 10^3/uL (0.2-0.9) 01/26/25 14:58 Eos # (Auto) 0.1 10^3/uL (0.0-0.8) 01/26/25 14:58 Baso # (Auto) 0.0 10^3/uL (0.0-0.1) 01/26/25 14:58 Nucleated RBC % (auto) 0 % 01/26/25 14:58 Nucleated RBCs # 0.0 /100WBC 01/26/25 14:58 Sodium 140 mmol/L (136-145) 01/26/25 14:58 Potassium 3.8 mmol/L (3.5-5.1) 01/26/25 14:58 Chloride 101 mmol/L (98-107) 01/26/25 14:58 Carbon Dioxide 26 mmol/L (22-29) 01/26/25 14:58 Anion Gap 16.8 (5-19) 01/26/25 14:58 BUN 14 mg/dL (8-23) 01/26/25 14:58 Creatinine 1.4 mg/dL (0.5-0.9) H 01/26/25 14:58 GFR Calculation 37.6 mL/min (90-130) L 01/26/25 14:58 Glucose 103 mg/dL (65-115) 01/26/25 14:58 Calculated Osmolality 291 mOsm/kg (285-295) 01/26/25 14:58 Calcium 9.4 mg/dL (8.5-10.5) 01/26/25 14:58 Total Bilirubin 0.4 mg/dL (0.15-1.2) 01/26/25 14:58 AST 24 U/L (0-32) 01/26/25 14:58 ALT 26 U/L (0-33) 01/26/25 14:58 Alkaline Phosphatase 82 U/L (35-105) 01/26/25 14:58 Troponin T Baseline 7 ng/L (0-10) 01/26/25 14:58 Troponin T 120 Minute 8.59 ng/L (0-10) 01/26/25 16:45 Delta Troponin T 1.59 ABS# (0-10) 01/26/25 16:45 Total Protein 6.9 g/dL (6.6-8.7) 01/26/25 14:58 Albumin 4.3 g/dL (3.5-5.2) 01/26/25 14:58 Globulin 2.6 g/dL (1.3-4.6) 01/26/25 14:58 Urine Color Dark yellow (Yellow) A 01/26/25 15:11 Urine Appearance Cloudy (CLEAR) A 01/26/25 15:11 Urine pH 5.0 (5-7) 01/26/25 15:11 Ur Specific [place] 1.025 (1.005-1.030) 01/26/25 15:11 Urine Protein 1+ (Negative) A 01/26/25 15:11 Urine Glucose (UA) Negative (Normal) 01/26/25 15:11 Urine Ketones Trace (Negative) 01/26/25 15:11 Urine Blood Trace (Negative) A 01/26/25 15:11 Urine Nitrate Negative (Negative) 01/26/25 15:11 Urine Bilirubin Negative (Negative) 01/26/25 15:11 Urine Urobilinogen 1.0 mg/dL (Negative) 01/26/25 15:11 Ur Leukocyte Esterase Negative (Negative) 01/26/25 15:11 Urine RBC 0-2 /hpf (0-2) 01/26/25 15:11 Urine WBC 6-10 /hpf (0-5) 01/26/25 15:11 Ur Squamous Epith Cells 11-20 /hpf (0-5) H 01/26/25 15:11 Amorphous Sediment Not Reportable 01/26/25 15:11 Urine Bacteria 4+ /hpf (NONE) H 01/26/25 15:11 Hyaline Casts 12.81 /lpf 01/26/25 15:11 All radiology interpretation(s) finalized by discharge Discharge Plan Discharge Patient Disposition: Home Clinical Impression: Lumbar radiculopathy, Syncope, vasovagal Condition: Stable Prescriptions: New tizanidine 4 mg tablet 4 mg PO Q6H PRN (Reason: muscle spasticity) Qty: 20 0RF Rx Instructions: do not exceed 3 doses per 24 hrs methylprednisolone [Medrol (Tab)] 4 mg tablets,dose pack See Rx Instructions .ROUTE .COMPLEX Qty: 21 0RF Rx Instructions: orally per package directions No Action Hair,Skin and Nails Tablet 1 tab PO DAILY@0700 metoprolol tartrate 50 mg tablet 50 mg PO BID Discharge Orders: Discharge ED (Routine); Ordered 01/26/25 Ordered By: Ankit Figueroa Referrals: Rika Moreira MD [Primary Care Provider, Family Practice] Discharge Diet: Usual diet Discharge Activity: Increase activity as tolerated Patient Instructions: Lumbar Radiculopathy (ED), Opioid Safety, Pain Management, Patient Portal & [place] Instructions Activity Restrictions/Additional Instructions: Thank you for choosing [facility] for your healthcare needs today. It is very important that you follow up as instructed or that you return to the Emergency Department should you have concerns or if your condition changes or worsens in any way. Emergency department visits are focused on emergent conditions, in some cases you may require further evaluation on an outpatient basis. You were seen in the emergency room after passing out due to pain in your back. Please passing out spells caused from the pain as close this is called a vasovagal episode. CT of your lumbar spine did not show vertebral compression fractures. No evidence of significant stenosis. Will discharge you home on a steroid taper also put you on muscle relaxer recommend that you follow-up with your primary care doctor if the back pain continues you may need further evaluation including possible MRI. (Please note that included in your discharge packet is information concerning opioid safety and pain management. This information is given to all patients were discharged from the ER regardless of their discharge diagnosis or the medicines they usually take or are prescribed.) Print Language: Japanese Coding Level of Care Code ED Assistant Track Coach for Jessica Olguin
[2025-01-26 18:19] VITALS: BP 179/94; PULSE 70; O2SAT 92
== END 2025-01-26 18:25 | disposition home or self-care (01) ==
PROVIDERS: Emergency Provider Family Medicine; PCP Family Medicine
DX: M54.16 Radiculopathy, lumbar region (principal); R55 Syncope and collapse; I10 Essential (primary) hypertension
CPT/HCPCS: 36415; 72131; 80053; 81001; 84484; 85025; 93005; 96374; 96375; 99285; J1100; J1885; J2360